=== PATIENT | female | born 2000 | race Caucasian/White ===

== ENCOUNTER 2021-05-19 19:28 | Emergency (ER) | payer OTHER ==
[2021-05-19 21:13] LABS: HEMOGLOBIN 14.2 gm/dl (12.3-15.3); RED BLOOD COUNT 4.73 M/UL (4.00-5.10); WHITE BLOOD COUNT 11.1 K/UL (4.5-11.0)
[2021-05-19 21:59] LABS: BUN/CREATININE RATIO 14 (0-10)
[2021-05-19] MEDS ORDERED: LOPRESSOR 25 MG25 MG PO (23:28)
== END 2021-05-19 23:45 | disposition home or self-care (01) ==
LOC: ER1 19:28
PROVIDERS: Preventive Medicine Occupational Medicine
DX: R00.2 Palpitations (principal)
CPT/HCPCS: 71045; 80053; 80307; 82550; 82553; 83874; 84439; 84443; 84484; 85025; 87086; 93005; 99285

== ENCOUNTER 2021-07-20 17:03 | Emergency (ER) | payer OTHER ==
[~2021-07-20 17:03] MED LIST: LOPRESSOR 25 MG25 MG PO
[2021-07-20 18:09] LABS: HEMOGLOBIN 13.5 gm/dl (12.3-15.3); RED BLOOD COUNT 4.65 M/UL (4.00-5.10); WHITE BLOOD COUNT 7.9 K/UL (4.5-11.0)
[2021-07-20 18:32] LABS: BUN/CREATININE RATIO 19 (0-10)
== END 2021-07-21 00:45 | disposition home or self-care (01) ==
LOC: ER1 17:03
PROVIDERS: Physician Assistant
DX: R00.2 Palpitations (principal); Z88.2 Allergy status to sulfonamides
CPT/HCPCS: 71045; 80053; 82550; 82553; 83735; 83874; 84439; 84443; 84484; 84703; 85025; 85379; 93005; 96374; 99285; J1885; Q0177; Q9967